=== PATIENT | female | born 1970 | race Caucasian/White ===

== ENCOUNTER → 2017-01-10 | Outpatient (CLI) | payer OTHER ==
--- NOTE | 2017-01-11 09:35 | RAD ---
Examination: Ultrasound right lower back Comparison: None available History: History of right low back pain Findings: Ultrasound of the right low back demonstrates a 2.8 x 0.9 x 2.5 cm hypoechoic elliptical shaped region without vascular flow within. Impression 2.8 cm elliptical region identified in the right low back without vascular flow within. The echogenicity appears similar to muscle adjacent to this region. This could be prominent appearing muscle or a lipoma. Consider MRI for further evaluation.
== END | disposition home or self-care (01) ==
LOC: US 15:36
PROVIDERS: ATTEND Nurse Practitioner Family
DX: M54.5 Low back pain (principal)
CPT/HCPCS: 76881